=== PATIENT | female | born 1995 | race Two or more races ===

== ENCOUNTER 2018-01-14 09:28 | Outpatient (CLI) | payer OTHER ==
[2018-01-14] MEDS ORDERED: Gadobenate Dimeglumine 529 MG/1 ML (20ML VIAL) ONE (15:11)
--- NOTE | 2018-01-14 17:32 | MRI ---
MRI OF BRAIN WITH AND WITHOUT IV CONTRAST: 01/14/18 HISTORY: Generalized epilepsy. FINDINGS: No evidence of infarct, hemorrhage, intra-axial mass, midline shift or abnormal extra-axial fluid col lections are seen. There is a tiny focus of low T1 and high T2 signal in the pars intermedia of the pituitary gland consistent with cyst. No abnormal postcontrast enhancement is seen. No restricted dif fusion is noted. No ectopic echeverria matter is noted. The hippocampal and parahippocampal regions are geneva aterally symmetric. The visualized paranasal sinuses and mastoid air cells are well aerated. 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 This study was interpreted with consultation with Dr. Maikol Lux (neuroradiologist) who concurs. POS: [facility]
== END 2018-01-14 09:29 | disposition home or self-care (01) ==
LOC: EEG 09:28
PROVIDERS: ATTEND Psychiatry & Neurology Neurology
DX: G40.309 Generalized idiopathic epilepsy and epileptic syndromes, not intractable, without status epilepticus (principal)
CPT/HCPCS: 70553; 95816; A9579